=== PATIENT | male | born 1955 | race Caucasian/White ===

== ENCOUNTER 2016-08-15 08:36 | Day surgery (SDC) | payer OTHER ==
[~2016-08-15 08:36] MED LIST: DEMEROL 50 MG IV ONE; VERSED 5 MG/5 ML IV ONE
[2016-08-15] MEDS ORDERED: Sodium Chloride 0.9% 1000 ML 1,000 ML IV SCH (09:30)
[2016-08-15 12:36] VITALS: BP 111/61; PULSE 47; O2SAT 97
--- NOTE | 2016-08-16 08:44 | OP ---
SURGERY DATE: 08/15/16 SURGERY TIME: 0 PREOPERATIVE DIAGNOSIS: 1. FOLLOW-UP RECTAL CANCER. POSTOPERATIVE DIAGNOSIS: 1. NORMAL. PROCEDURE: 1. Colonoscopy complete. SURGEON: Camilo Mauricio M.D. FINANCIAL ADVOCATE: Aubrey Reynolds MS-III. ANESTHESIA: IV sedation. COMPLICATIONS: None. CONDITION: Stable. INDICATION: 61 y/o requiring colonoscopic examination. OPERATIVE PROCEDURE: Taken to endoscopy. Left lateral decubitus position. After suitable sedation, anal digital examination satisfactory. Scope introduced. Anastomosis was low at 3-4 cm. The blind end was blind. No mucosal lesions. The functional limb was cannulated. It probably was mid sigmoid. Descending and splenic flexure had been mobilized. Transverse colon, hepatic flexure, ascending, cecum, ileocecal valve, and base of the appendix were all normal. On circumferential withdrawal, it was all normal. IMPRESSION: 1. NORMAL EXAMINATION. FOLLOW-UP: 1 year.
--- NOTE | 2016-08-16 08:46 | HP ---
DATE: 08/15/16 ADMISSION DIAGNOSIS: 1. ONE YEAR FOLLOW-UP OF COLORECTAL CANCER. PAST MEDICAL HISTORY: ALLERGIES: NONE. CURRENT MEDICATIONS: Lisinopril, Flomax. SURGERIES: Tonsillectomy, low anterior resection. SOCIAL HISTORY: Positive tobacco. Negative ETOH. FAMILY HISTORY: Negative. REVIEW OF SYSTEMS: Negative. PHYSICAL EXAMINATION: Vital signs normal. CHEST: Clear. COR: Regular. ABDOMEN: No palpable organomegaly or mass. Well healed incision. IMPRESSION: 1. FOLLOW-UP COLORECTAL CANCER. PLAN: Colonoscopy.
== END 2016-08-15 13:23 | disposition home or self-care (01) ==
LOC: SDC 08:36
PROVIDERS: ATTEND Surgery
PROC: 0DJD8ZZ Inspection of Lower Intestinal Tract, Via Natural or Artificial Opening Endoscopic (ICD-10-PCS; principal; 2016-08-15)
DX: Z85.038 Personal history of other malignant neoplasm of large intestine (principal)
CPT/HCPCS: J1642; J2175; J2250

== ENCOUNTER 2020-08-10 08:13 | Day surgery (SDC) | payer OTHER ==
--- NOTE | 2020-08-04 14:14 | HP ---
DATE OF SURGERY: 08/10/2020 HISTORY OF PRESENT ILLNESS: The patient is a 65 presents for Port-A-Cath insertion. The patient has the diagnosis of rectal cancer. PAST MEDICAL HISTORY: Hypertension. PAST SURGICAL HISTORY: Colon resection for colon cancer. ALLERGIES: NKDA. BANANA. MEDICATIONS: Lisinopril. FAMILY HISTORY: None reported. SOCIAL HISTORY: Chewing tobacco and daily alcohol use. REVIEW OF SYSTEMS: CONSTITUTIONAL: Denies fever or chills. CHEST: Denies shortness of breath. CVS: Denies chest pain. ABDOMEN: Denies abdominal pain. INTEGUMENTARY: Negative. PHYSICAL EXAMINATION: GENERAL: No acute distress. CHEST: Nonlabored. No shortness of breath. CVS: Regular rate and rhythm. ABDOMEN: Soft, nontender to palpation. EXTREMITIES: No edema. NEUROLOGIC: Alert. PSYCHIATRIC: Appropriate. IMPRESSION: Rectal cancer. PLAN: Port-A-Cath insertion and colonoscopy with Dr. Camilo Mauricio. As dictated by Morena Eason NP.
[~2020-08-10 08:13] MED LIST changes: -DEMEROL 50 MG IV ONE; +Lactated Ringers 1,000 ML IV ONE; -VERSED 5 MG/5 ML IV ONE; +XYLOCAINE 1% HCL 20 ML MDV ONE
[2020-08-10] MEDS ORDERED: Lactated Ringers 1,000 ML IV ONE (08:22)
[2020-08-10] MEDS ORDERED: Lactated Ringers 1,000 ML IV SCH (08:30)
[2020-08-10] MEDS ORDERED: Versed 2 MG/2 ML Injection ONE (10:52)
[2020-08-10] MEDS ORDERED: SUBLIMAZE 100 MCG/2 ML ONE (10:52)
[2020-08-10] MEDS ORDERED: DIPRIVAN 200 MG/20 ML IV ONE ×2 (10:52→11:36)
[2020-08-10] MEDS ORDERED: KEFZOL 1 GM ONE (10:59)
--- NOTE | 2020-08-10 11:59 | XRAY ---
Indication: Planned. Intraoperative fluoroscopy provided for 2 seconds. Single digital spot image submitted for interpretation demonstrates right Port-A-Cath with tip projecting over SVC. Correlate with intraoperative/report.
[2020-08-10 13:27] VITALS: BP 153/98; PULSE 55; O2SAT 97
--- NOTE | 2020-08-10 13:51 | OP ---
SURGERY DATE/TIME: 08/10/2020 1052 PREOPERATIVE DIAGNOSIS: Inadequate access for treatment of rectal cancer. POSTOPERATIVE DIAGNOSIS: Inadequate access for treatment of rectal cancer. PROCEDURE: Port-A-Cath tunneled with fluoroscopic C-arm guidance. SURGEON: Camilo Mauricio M.D. ANESTHESIA: MAC. COMPLICATIONS: None. CONDITION: Stable. INDICATION: A patient requiring access. DESCRIPTION OF PROCEDURE: Routine prep and drape. Venipuncture obtained. Guidewire is placed. Catheter is placed. Good aspiration of low pressure venous blood. Flushed and secured with 3-0 Prolene, 3-0 Vicryl, 4-0 Vicryl and Steri-Strips. The patient tolerated the procedure satisfactorily.
--- NOTE | 2020-08-10 14:01 | OP ---
SURGERY DATE/TIME: 08/10/2020 1052 PREOPERATIVE DIAGNOSIS: Previous rectal tumor and colon polyp. POSTOPERATIVE DIAGNOSES: 1) Normal examination with normal anastomosis. 2) Prep score excellent. PROCEDURE: Colonoscopy complete. SURGEON: Camilo Mauricio M.D. ANESTHESIA: MAC. COMPLICATIONS: None. CONDITION: Stable. INDICATION: A patient requiring colonoscopy follow up as he had rectal cancer. He also had polyps. DESCRIPTION OF PROCEDURE: He is taken to endoscopy. Left lateral decubitus position. Anal digital examination is satisfactory. The anastomosis was palpable. Scope introduced. Residual anus and residual rectum about 4 cm was all normal. The anastomosis was normal. The two lumens, the blind lumen about 1 inch was normal. The functional lumen was cannulated and this was taken over to the cecum. There was some residual diverticulosis. There were no mucosal lesions. Base of the cecum, ileocecal valve, appendiceal area all normal. Ascending, hepatic, transverse, splenic, descending residual portion of sigmoid except for diverticulosis normal. The patient tolerated the procedure satisfactorily. IMPRESSION: Normal examination today.
== END 2020-08-10 13:15 | disposition home or self-care (01) ==
LOC: SDC 08:13
PROVIDERS: ATTEND Surgery
DX: Z45.2 Encounter for adjustment and management of vascular access device (principal); C20 Malignant neoplasm of rectum; Z90.49 Acquired absence of other specified parts of digestive tract; K57.30 Diverticulosis of large intestine without perforation or abscess without bleeding; I10 Essential (primary) hypertension; Z79.899 Other long term (current) drug therapy; Z86.010 Personal history of colon polyps
CPT/HCPCS: 77001; C1788; J0690; J1642; J2250; J2704; J3010

== ENCOUNTER 2024-05-31 09:33 | Emergency (ER) | payer MEDICARE, OTHER ==
[2024-05-31 09:46] VITALS: TEMP 97.2
--- NOTE | 2024-05-31 09:59 | ERPHSYRPT ---
- History of Present Illness Time Seen by Provider: 05/31/24 09:55 Historian: patient Exam Limitations: no limitations Patient Subjective Stated Complaint: pt here for pain to chest off and on for a week now, had recent rsv and states also had a recent small pnuemo to righr side. no cough or fever Triage Nursing Assessment: pt alert, walked in, resp easy, no cough, skin w/d/p. has port a cath to right side of chest, no edema noted Physician History: 69-year-old male history of metastatic colon cancer and currently a known left "collapsed" lung. Presents to our ED for evaluation of intermittent left-sided chest pain that radiates into his left arm. No cough no fever no nausea no vomiting no diarrhea. Patient reports she was recently diagnosed with RSV. No associated diaphoresis. Patient voices no other complaints or concerns at this time. Portions of this note were created with voice recognition technology. There may be grammatical, spelling, punctuation or sound alike errors Timing/Duration: today Activities at Onset: none Quality: aching Location: substernal Chest Pain Radiation: arm (Left arm) Severity of Pain-Max: moderate Severity of Pain-Current: mild Modifying Factors: Improves With: nothing Associated Symptoms: denies symptoms Prior Chest Pain/Cardiac Workup: no prior chest pain Nitro Today/Relief: no nitro taken today Aspirin Treatment Today: no aspirin today Allergies/Adverse Reactions: banana Adverse Reaction (Verified 08/10/20 08:25) Congested Nose Home Medications: Lisinopril 20 mg [Zestril 20 MG] 20 mg PO DAILY 08/02/20 [History] Multivitamin [Daily Multivitamin] 1 each PO DAILY 08/02/20 [History] Hx Tetanus, Diphtheria Vaccination/Date Given: No Hx Influenza Vaccination/Date Given: No Hx Pneumococcal Vaccination/Date Given: No Travel Risk - International Travel Have you traveled outside of the country in past 3 weeks: No - Emerging Infectious Disease Are you exhibiting symptoms associated with any current EIDs: No - Review of Systems Constitutional: No Symptoms, No Fever, No Chills Eyes: No Symptoms Ears, Nose, & Throat: No Symptoms Respiratory: No Symptoms, No Cough, No Dyspnea Cardiac: No Symptoms, No Chest Pain, No Edema, No Syncope Abdominal/Gastrointestinal: No Symptoms, No Abdominal Pain, No Nausea, No Vomiting, No Diarrhea Genitourinary Symptoms: No Symptoms, No Dysuria Musculoskeletal: No Symptoms, No Back Pain, No Neck Pain Skin: No Symptoms, No Rash Neurological: No Symptoms, No Dizziness, No Focal Weakness, No Sensory Changes Psychological: No Symptoms Endocrine: No Symptoms Hematologic/Lymphatic: No Symptoms Immunological/Allergic: No Symptoms All Other Systems: Reviewed and Negative - Past Medical History Pertinent Past Medical History: Yes Neurological History: No Pertinent History ENT History: No Pertinent History Cardiac History: Hypertension Respiratory History: Lung Cancer Endocrine Medical History: No Pertinent History Musculoskeletal History: No Pertinent History GI Medical History: Colorectal Cancer, Liver Cancer History: No Pertinent History Psycho-Social History: No Pertinent History Male Reproductive Disorders: No Pertinent History Other Medical History: liver ca - Past Surgical History Past Surgical History: Yes Neuro Surgical History: No Pertinent History Cardiac: No Pertinent History Respiratory: No Pertinent History Gastrointestinal: Colon Resection, Other Genitourinary: No Pertinent History Musculoskeletal: No Pertinent History Male Surgical History: No Pertinent History Other Surgical History: TONSILECTOMY, colon resection , CVL port placed and removed, Liver bx was cancer, Lung spot in 2019,enlarged in July 2019, Dx lung cancer July 2020,lung bx . liver ca removed - Social History Smoking Status: Former smoker How long have you smoked: 45 years Exposure to second hand smoke: Yes Drug Use: none - Social Determinants of Health Will the patient participate in the screening: Declined to provide - Nursing Vital Signs Nursing Vital Signs: Initial Vital Signs Pulse Rate 78 05/31/24 09:40 Respiratory Rate 23 05/31/24 09:40 Blood Pressure 130/76 05/31/24 09:40 O2 Sat by Pulse Oximetry 96 05/31/24 09:40 Pain Scale Pain Intensity 0 - Physical Exam General Appearance: no apparent distress, alert Eye Exam: PERRL/EOMI, eyes nml inspection Ears, Nose, Throat Exam: normal ENT inspection, moist mucous membranes Neck Exam: normal inspection, non-tender, supple, full range of motion Respiratory Exam: normal breath sounds, lungs clear, airway intact, No respiratory distress Cardiovascular Exam: regular rate/rhythm, normal heart sounds Gastrointestinal/Abdomen Exam: soft, No tenderness, No mass Back Exam: normal inspection, No CVA tenderness, No vertebral tenderness Extremity Exam: normal inspection, normal range of motion Neurologic Exam: alert, oriented x 3, cooperative, normal mood/affect, sensation nml, No motor deficits Skin Exam: normal color, warm, dry Lymphatic Exam: No adenopathy SpO2 Interpretation: normal SpO2: 98 O2 Delivery: Room Air - Course Nursing assessment & vital signs reviewed: Yes EKG Interpreted by Me: RATE (74), Sinus Rhythm, NORMAL AXIS, NORMAL INTERVALS, NORMAL QRS - CT Exams Chest CT Interpretation: Tele-radiologist Report (Left lower lobe postobstructive atelectasis, noncalcified pulmonary nodule, otherwise no acute findings) Ordered Tests: Active Orders 24 hr Category Date Time Status National Sales STAT Care 05/31/24 09:50 Active EKG-ER Only STAT Care 05/31/24 09:49 Active IV Insertion STAT Care 05/31/24 09:49 Active Pulse Oximetry (ED) STAT Care 05/31/24 09:49 Active CHEST WITH CONTRAST [CT] Stat Exams 05/31/24 11:01 Completed CBC Q48H Lab 06/01/24 06:00 Ordered CBC Q48H Lab 06/03/24 06:00 Ordered CBC Q48H Lab 06/05/24 06:00 Ordered CBC Q48H Lab 06/07/24 06:00 Ordered CBC Q48H Lab 06/09/24 06:00 Ordered CBC Q48H Lab 06/11/24 06:00 Ordered CBC Q48H Lab 06/13/24 06:00 Ordered CBC Stat Lab 05/31/24 14:05 Completed CBC W DIFF Stat Lab 05/31/24 10:10 Completed CMP Stat Lab 05/31/24 10:10 Completed D-DIMER QUANTITATIVE Stat Lab 05/31/24 10:10 Completed MAG [MAGNESIUM] Stat Lab 05/31/24 10:10 Completed NT PRO BNPII Stat Lab 05/31/24 10:10 Completed PROTIME WITH INR Stat Lab 05/31/24 14:05 Completed PTT Q4H Lab 05/31/24 18:00 Ordered PTT Q4H Lab 05/31/24 22:00 Ordered PTT Q4H Lab 06/01/24 02:00 Ordered PTT Q4H Lab 06/01/24 06:00 Ordered PTT Q4H Lab 06/01/24 10:00 Ordered PTT Q4H Lab 06/01/24 14:00 Ordered PTT Q4H Lab 06/01/24 18:00 Ordered PTT Q4H Lab 06/01/24 22:00 Ordered PTT Q4H Lab 06/02/24 02:00 Ordered PTT Q4H Lab 06/02/24 06:00 Ordered PTT Q4H Lab 06/02/24 10:00 Ordered PTT Stat Lab 05/31/24 14:05 Completed TROPONIN Q4H Lab 05/31/24 10:10 Completed TROPONIN Q4H Lab 05/31/24 14:05 Completed TROPONIN Q4H Lab 05/31/24 18:00 Ordered Medication Summary Generic Name Dose Route Start Last Admin Trade Name Freq PRN Reason Stop Dose Admin Heparin Sodium/Dextrose 25,000 units in 250 mls @ 10.777 mls/hr 05/31/24 14:00 05/31/24 14:31 Heparin 25,000 Units/D5w: Use Order Set Jerel IV 06/30/24 13:59 12 units/kg/hr .[id number] SALINAS 10.777 mls/hr Administration Protocol 12 UNITS/KG/HR Discontinued Medications Generic Name Dose Route Start Last Admin Trade Name Freq PRN Reason Stop Dose Admin Aspirin 324 mg 05/31/24 09:56 05/31/24 10:07 Aspirin 81 Mg Tab.Chew PO 05/31/24 09:57 324 mg STAT ONE Administration Aspirin Confirm 05/31/24 10:06 Aspirin 81 Mg Tab.Chew Administered 05/31/24 10:07 Dose 324 mg .ROUTE .STK-MED ONE Heparin Sodium (Beef Lung) 5,000 unit 05/31/24 13:54 05/31/24 14:31 Heparin 5000 Units/0.5 Ml 5,000 Unit/0.5 Ml Syr IV 05/31/24 13:55 5,000 unit STAT STA Administration Heparin Sodium (Beef Lung) Confirm 05/31/24 14:07 Heparin 5000 Units/0.5 Ml 5,000 Unit/0.5 Ml Syr Administered 05/31/24 14:08 Dose 5,000 unit .ROUTE .STK-MED ONE Nitroglycerin 1 gm 05/31/24 09:57 05/31/24 10:07 Nitroglycerin 1 Gm Packet TOP 05/31/24 09:58 1 gm STAT ONE Administration Nitroglycerin Confirm 05/31/24 10:06 Nitroglycerin 1 Gm Packet Administered 05/31/24 10:07 Dose 1 gm .ROUTE .STK-MED ONE Lab/Rad Data: Laboratory Result Diagrams 05/31/24 14:05 05/31/24 10:10 Laboratory Results 05/31/24 05/31/24 05/31/24 Range/Units 14:05 14:05 14:05 WBC 8.6 (4.23-9.07) x10^3/uL RBC 4.35 L (4.63-6.08) x10^6/uL Hgb 13.7 (13.7-17.5) g/dL Hct 39.5 L (40.1-51.0) % MCV 90.8 (79.0-92.2) fL MCH 31.5 (25.7-32.2) pg MCHC 34.7 (32.3-36.5) g/dL RDW 12.5 (11.6-14.4) % Plt Count 204 (163-337) x10^3/uL MPV 9.8 (9.4-12.4) fL Gran % (34.0-67.9) % Immature Gran % (Auto) (0.001-0.429) % Nucleat RBC Rel Count (0.00-0.2) % Eos # (Auto) (0.04-0.54) x10^3/uL Immature Gran # (Auto) (0.001-0.031) x10^3u/L Absolute Lymphs (auto) (1.32-3.57) x10^3/uL Absolute Monos (auto) (0.30-0.82) x10^3/uL Absolute Nucleated RBC (0.00-0.012) x10^3u/L Lymphocytes % (21.8-53.1) % Monocytes % (5.3-12.2) % Eosinophils % (0.8-7.0) % Basophils % (0.2-1.2) % Absolute Granulocytes (1.78-5.38) x10^3/uL Basophils # (0.01-0.08) x10^3/uL PT 11.1 (9.4-12.5) SECONDS INR 1.02 (0.8-3.0) APTT 27.1 (25.1-36.5) SECONDS D-Dimer (0.0-0.50) mg/L Sodium (135-145) mmol/L Potassium (3.5-5.1) mmol/L Chloride (98-107) mmol/L Carbon Dioxide (22-30) mmol/L Anion Gap (5-15) MEQ/L BUN (9-20) mg/dL Creatinine (0.66-1.25) mg/dL Estimated GFR ML/MIN Glucose (74-106) mg/dL Calcium (8.4-10.2) mg/dL Magnesium (1.6-2.3) mg/dL Total Bilirubin (0.2-1.3) mg/dL AST (17-59) U/L ALT (0-50) U/L Alkaline Phosphatase (38-126) U/L Troponin I 5.930 H* (0.000-0.033) ng/mL NT-Pro-B Natriuret Pep (<300) pg/mL Serum Total Protein (6.3-8.2) g/dL Albumin (3.5-5.0) g/dL Influenza Type A Ag (NEGATIVE) Influenza Type B Ag (NEGATIVE) RSV (PCR) (NEGATIVE) SARS-CoV-2 (PCR) (NEGATIVE) 05/31/24 05/31/24 05/31/24 Range/Units 11:50 10:10 10:10 WBC (4.23-9.07) x10^3/uL RBC (4.63-6.08) x10^6/uL Hgb (13.7-17.5) g/dL Hct (40.1-51.0) % MCV (79.0-92.2) fL MCH (25.7-32.2) pg MCHC (32.3-36.5) g/dL RDW (11.6-14.4) % Plt Count (163-337) x10^3/uL MPV (9.4-12.4) fL Gran % (34.0-67.9) % Immature Gran % (Auto) (0.001-0.429) % Nucleat RBC Rel Count (0.00-0.2) % Eos # (Auto) (0.04-0.54) x10^3/uL Immature Gran # (Auto) (0.001-0.031) x10^3u/L Absolute Lymphs (auto) (1.32-3.57) x10^3/uL Absolute Monos (auto) (0.30-0.82) x10^3/uL Absolute Nucleated RBC (0.00-0.012) x10^3u/L Lymphocytes % (21.8-53.1) % Monocytes % (5.3-12.2) % Eosinophils % (0.8-7.0) % Basophils % (0.2-1.2) % Absolute Granulocytes (1.78-5.38) x10^3/uL Basophils # (0.01-0.08) x10^3/uL PT (9.4-12.5) SECONDS INR (0.8-3.0) APTT (25.1-36.5) SECONDS D-Dimer (0.0-0.50) mg/L Sodium (135-145) mmol/L Potassium (3.5-5.1) mmol/L Chloride (98-107) mmol/L Carbon Dioxide (22-30) mmol/L Anion Gap (5-15) MEQ/L BUN (9-20) mg/dL Creatinine (0.66-1.25) mg/dL Estimated GFR ML/MIN Glucose (74-106) mg/dL Calcium (8.4-10.2) mg/dL Magnesium 1.9 (1.6-2.3) mg/dL Total Bilirubin (0.2-1.3) mg/dL AST (17-59) U/L ALT (0-50) U/L Alkaline Phosphatase (38-126) U/L Troponin I 0.138 H* (0.000-0.033) ng/mL NT-Pro-B Natriuret Pep (<300) pg/mL Serum Total Protein (6.3-8.2) g/dL Albumin (3.5-5.0) g/dL Influenza Type A Ag NEGATIVE (NEGATIVE) Influenza Type B Ag NEGATIVE (NEGATIVE) RSV (PCR) NEGATIVE (NEGATIVE) SARS-CoV-2 (PCR) NEGATIVE (NEGATIVE) 05/31/24 05/31/24 05/31/24 Range/Units 10:10 10:10 10:10 WBC 7.8 (4.23-9.07) x10^3/uL RBC 4.60 L (4.63-6.08) x10^6/uL Hgb 14.3 (13.7-17.5) g/dL Hct 40.5 (40.1-51.0) % MCV 88.0 (79.0-92.2) fL MCH 31.1 (25.7-32.2) pg MCHC 35.3 (32.3-36.5) g/dL RDW 12.3 (11.6-14.4) % Plt Count 206 (163-337) x10^3/uL MPV 9.9 (9.4-12.4) fL Gran % 67.7 (34.0-67.9) % Immature Gran % (Auto) 0.3 (0.001-0.429) % Nucleat RBC Rel Count 0.0 (0.00-0.2) % Eos # (Auto) 0.30 (0.04-0.54) x10^3/uL Immature Gran # (Auto) 0.02 (0.001-0.031) x10^3u/L Absolute Lymphs (auto) 1.36 (1.32-3.57) x10^3/uL Absolute Monos (auto) 0.81 (0.30-0.82) x10^3/uL Absolute Nucleated RBC 0.00 (0.00-0.012) x10^3u/L Lymphocytes % 17.4 L (21.8-53.1) % Monocytes % 10.4 (5.3-12.2) % Eosinophils % 3.8 (0.8-7.0) % Basophils % 0.4 (0.2-1.2) % Absolute Granulocytes 5.29 (1.78-5.38) x10^3/uL Basophils # 0.03 (0.01-0.08) x10^3/uL PT (9.4-12.5) SECONDS INR (0.8-3.0) APTT (25.1-36.5) SECONDS D-Dimer 1.40 H* (0.0-0.50) mg/L Sodium 135 (135-145) mmol/L Potassium 4.3 (3.5-5.1) mmol/L Chloride 101 (98-107) mmol/L Carbon Dioxide 21 L (22-30) mmol/L Anion Gap 17.3 H (5-15) MEQ/L BUN 15 (9-20) mg/dL Creatinine 0.61 L (0.66-1.25) mg/dL Estimated GFR 105.3 ML/MIN Glucose 117 H (74-106) mg/dL Calcium 9.6 (8.4-10.2) mg/dL Magnesium (1.6-2.3) mg/dL Total Bilirubin 0.70 (0.2-1.3) mg/dL AST 39 (17-59) U/L ALT 25 (0-50) U/L Alkaline Phosphatase 109 (38-126) U/L Troponin I (0.000-0.033) ng/mL NT-Pro-B Natriuret Pep 118 (<300) pg/mL Serum Total Protein 7.1 (6.3-8.2) g/dL Albumin 4.0 (3.5-5.0) g/dL Influenza Type A Ag (NEGATIVE) Influenza Type B Ag (NEGATIVE) RSV (PCR) (NEGATIVE) SARS-CoV-2 (PCR) (NEGATIVE) - Progress Progress: improved Air Movement: good Progress Note: I spoke to Dr. Goodwin hospitalist who accepts admission at 2:53 PM. 05/31/24 14:53 69-year-old male presents to our ED for evaluation of chest pain radiating to his left arm. D-dimer positive. CTA chest negative for PE however there is a what appears to be a new noncalcified 3 mm pulmonary nodule at the right lung. Initial troponin 0.138. Repeat troponin 5.9. Patient has no chest pain. No shortness of breath. Patient shows no STEMI no acute findings. This elevated troponin appears to be upswing from the original events. Patient received full dose aspirin, patient has nitroglycerin patch. Heparin drip initiated. Patient resting comfortably has no complaints. [facility] for [facility] evaluation and treatment. Portions of this note were created with voice recognition technology. There may be grammatical, spelling, punctuation or sound alike errors Complexity of problem addressed is moderate acute complicated. No critical care time. Complexity of data reviewed and analyzed is extensive. Test ordered chest reviewed results analyzed and correlated clinically with history and physical exam. Management discussed with hospitalist at [facility] Dr. Goodwin who accepts admission/transfer at 2:53 PM. Risk of complication and or risk of morbidity/mortality of patient management is high. Patient requires transfer to higher level of care. Vital stable. Time spent to discharge pat ient is approximately 15 minutes. Plan of care established for shared decision making. No social determinants of health present to impede follow-up. Portions of this note were created with voice recognition technology. There may be grammatical, spelling, punctuation or sound alike errors Blood Culture(s) Obtained: No Antibiotics given: No Counseled pt/family regarding: lab results, diagnosis, rad results - Departure Departure Disposition: Transfer Clinical Impression: Elevated troponin, NSTEMI (non-ST elevated myocardial infarction), ACS (acute coronary syndrome) Condition: Stable Critical Care Time: No Referrals: BRITT ADAMS MD [Primary Care Provider] - Follow up/PCP as directed
[2024-05-31] MEDS ORDERED: NITRO-BID 2% UD PACKETS ONE (10:06)
[2024-05-31] MEDS ORDERED: BABY ASPIRIN 81 MG CHEW ONE (10:06)
[2024-05-31] MEDS: NITRO-BID 2% UD PACKETS TOP ONE (10:07)
[2024-05-31] MEDS: BABY ASPIRIN 81 MG CHEW PO ONE (10:07)
[2024-05-31 10:34] LABS: Absolute Neutrophil Ct (ANC) 5.29 x10^3/uL (1.78-5.38); BASOPHIL % 0.4 % (0.2-1.2); Basophil (Absolute #) 0.03 x10^3/uL (0.01-0.08); Eosinophil % 3.8 % (0.8-7.0); Hematocrit 40.5 % (40.1-51.0); Hemoglobin 14.3 g/dL (13.7-17.5); IMMATURE GRAN # 0.02 x10^3u/L (0.001-0.031); IMMATURE GRAN % 0.3 % (0.001-0.429); Lymphocyte (Absolute #) 1.36 x10^3/uL (1.32-3.57); Lymphocytes % 17.4 % (21.8-53.1); Mean Corpuscular Hemoglobin 31.1 pg (25.7-32.2); Mean Corpuscular Hgb Concent. 35.3 g/dL (32.3-36.5); Mean Platelet Volume 9.9 fL (9.4-12.4); Monocyte (Absolute #) 0.81 x10^3/uL (0.30-0.82); Monocytes % 10.4 % (5.3-12.2); Neutrophil % 67.7 % (34.0-67.9); Platelet Count 206 x10^3/uL (163-337); Red Cell Distribution Width 12.3 % (11.6-14.4); White Blood Count 7.8 x10^3/uL (4.23-9.07)
[2024-05-31 10:56] LABS: ANION GAP 17.3 MEQ/L (5-15); BILIRUBIN,TOTAL 0.7 mg/dL (0.2-1.3); Calcium 9.6 mg/dL (8.4-10.2); Creatinine 1 0.61 mg/dL (0.66-1.25); EST GLOMERULAR FILTRATION RATE 105.3 ML/MIN; Total Protein 7.1 g/dL (6.3-8.2)
[2024-05-31 10:57] LABS: Potassium 4.3 mmol/L (3.5-5.1)
[2024-05-31 12:46] LABS: INFLUENZA A NEGATIVE (NEGATIVE); INFLUENZA B NEGATIVE (NEGATIVE); RESPIRATORY SYNCTIAL VIRUS NEGATIVE (NEGATIVE); SARS-CoV-2 Xpert Express NEGATIVE (NEGATIVE)
--- NOTE | 2024-05-31 13:37 | XRAY ---
Indication: Pain. Positive d-dimer. Colon cancer 9 years ago. Liver and lung cancer with chemotherapy and radiation therapy. Multiple contiguous axial images obtained through the chest using 80 cc Isovue 370 contrast and PE protocol. Comparison: None Good opacification pulmonary arteries to include the lobar and segmental branches. No pulmonary embolus. Heart borderline enlarged with right Port-A-Cath. Aorta is normal in course and caliber. Tiny bilateral hilar calcified nodes. No pathologic mediastinal/hilar lymphadenopathy. Small hiatal hernia. Examination lung parenchyma demonstrates opacification medial bronchus with subsequent postobstructive atelectasis. Elsewhere minimal bilateral dependent atelectasis and tiny left upper/right lower lobe calcified granulomas. Right middle lobe demonstrates 3 mm indeterminant peripheral noncalcified nodule (image 43). No infiltrate or effusion. Bony thorax intact with minimal/mild degenerative changes throughout spine and minimal dextroscoliosis centered at T7. Limited upper abdomen demonstrates multiple hepatic surgical clips. Left lobe of liver demonstrates 1.5 cm and 0.7 cm hepatic cysts. Also multiple hepatic surgical clips and incidental tiny splenic calcified granulomas. Impression: 1. Negative pulmonary embolus. 2. Opacification left lower lobe medial bronchus with postobstructive atelectasis. Rule out endobronchial mass versus mucus plugging. 3. Right middle lobe 3 mm indeterminant noncalcified nodule. Potentially/metastasis not completely excluded given history of cancer. Outside comparison studies recommended if available. 4. Chronic findings including hiatal hernia, chronic bony findings, hepatic cysts, and old granulomatous disease.
[2024-05-31] MEDS ORDERED: HEPARIN 5000 UNITS/0.5 ML (HIGH RISK MED) ONE (14:07)
[2024-05-31 14:08] LABS: Hematocrit 39.5 % (40.1-51.0); Hemoglobin 13.7 g/dL (13.7-17.5); Mean Cell Volume 90.8 fL (79.0-92.2); Mean Corpuscular Hemoglobin 31.5 pg (25.7-32.2); Mean Corpuscular Hgb Concent. 34.7 g/dL (32.3-36.5); Mean Platelet Volume 9.8 fL (9.4-12.4); Platelet Count 204 x10^3/uL (163-337); Red Blood Count 4.35 x10^6/uL (4.63-6.08); Red Cell Distribution Width 12.5 % (11.6-14.4); White Blood Count 8.6 x10^3/uL (4.23-9.07)
[2024-05-31] MEDS ORDERED: Heparin 25,000 units/D5W: USE ORDER SET PROTO 25,000 UNITS/250 ML BAG IV ONE (14:08)
[2024-05-31] MEDS: Heparin 25,000 units/D5W: USE ORDER SET PROTO 25,000 UNITS/250 ML BAG IV SCH (14:31)
[2024-05-31] MEDS: HEPARIN 5000 UNITS/0.5 ML (HIGH RISK MED) IV STA (14:31)
[2024-05-31 14:42] LABS: INR 1.02 (0.8-3.0); PROTIME 11.1 SECONDS (9.4-12.5); PTT 27.1 SECONDS (25.1-36.5)
[2024-05-31 15:07] VITALS: BP 136/81; PULSE 84; RESP 24
[2024-05-31 15:30] VITALS: O2SAT 98
== END 2024-05-31 15:54 | disposition short-term general hospital (02) ==
LOC: ED 09:33
DX: I21.4 Non-ST elevation (NSTEMI) myocardial infarction (principal); I24.9 Acute ischemic heart disease, unspecified; R77.8 Other specified abnormalities of plasma proteins; R07.9 Chest pain, unspecified; I10 Essential (primary) hypertension; Z79.899 Other long term (current) drug therapy
CPT/HCPCS: 0241U; 36415; 71260; 80053; 83735; 83880; 84484; 85025; 85027; 85379; 85610; 85730; 93005; 93041; 94760; 96374; 99285; J1644; A9270-GY